=== PATIENT | male | born 1965 | race Caucasian/White ===

== ENCOUNTER → 2018-04-10 | Outpatient (CLI) | payer BC ==
[~2018-04-10] MED LIST: ACET-1600 PO; LACT1CAP35 PO; MULT-717 PO; NAPR1TAB21 PO; OMEG1CAP23 PO; SULF-169 PO
== END ==
LOC: STAR 14:26
PROVIDERS: ATTEND Orthopaedic Surgery
DX: Z02.9 Encounter for administrative examinations, unspecified (principal)

== ENCOUNTER 2018-04-14 14:27 | Day surgery (SDC) | payer BC ==
[~2018-04-14] VITALS: Ht 162.6 cm; Wt 101.0 kg
[~2018-04-14 14:27] MED LIST changes: +BUPIVACAINE/PF 0.25% ONE; +CEFAZOLIN 1,000 MG ONE; +DEXAMETHASONE 4 MG/ML, 1ML ONE; +FENTANYL PF 250 MCG/5ML ONE; +LIDOCAINE-MPF 2% ,5ML ONE; +MIDAZOLAM 1 MG/ML, 2ML ONE; +ONDANSETRON 2MG/ML, 2ML ONE; +PROPOFOL 10 MG/ML, 20ML ONE
[2018-04-14] MEDS ORDERED: EPHEDRINE 50 MG/ML, 1ML IM PRN (15:00)
[2018-04-14] MEDS ORDERED: OXYcodone 5 MG/5 ML ORAL.SOL UDC PO PRN (15:00)
[2018-04-14] MEDS ORDERED: METOCLOPRAMIDE 5 MG/ML, 2ML IV PRN (15:00)
[2018-04-14] MEDS ORDERED: ACETAMINOPHEN 325 MG TABLET PO PRN (15:00)
[2018-04-14] MEDS ORDERED: ONDANSETRON ODT 8 MG PO ONE (15:00)
[2018-04-14] MEDS ORDERED: GABAPENTIN 300 MG CAPSULE PO ONE (15:00)
[2018-04-14] MEDS ORDERED: MIDAZOLAM 1 MG/ML, 2ML IV PRN (15:00)
[2018-04-14] MEDS ORDERED: ALBUTEROL/IPRATROPIUM 2.5MG/0.5MG, 3 ML NPPB PRN (15:00)
[2018-04-14] MEDS ORDERED: PROMETHAZINE 25 MG/ML, 1ML IV PRN (15:00)
[2018-04-14] MEDS ORDERED: FENTANYL PF 100 MCG/2ML IV PRN (15:00)
[2018-04-14] MEDS ORDERED: ACETAMINOPHEN 500 MG TABLET PO ONE (15:00)
[2018-04-14] MEDS ORDERED: MORPHINE SULFATE 4 MG/ML, 1ML IVPush PRN (15:00)
[2018-04-14] MEDS ORDERED: LABETALOL 5MG/ML, 20ML IV PRN (15:00)
[2018-04-14] MEDS ORDERED: MEPERIDINE/PF 25MG/0.5ML IVPush PRN (15:00)
[2018-04-14] MEDS ORDERED: ONDANSETRON ODT 8 MG ONE (15:01)
[2018-04-14] MEDS ORDERED: ACETAMINOPHEN 500 MG TABLET ONE (15:01)
[2018-04-14] MEDS ORDERED: GABAPENTIN 300 MG CAPSULE ONE (15:01)
[2018-04-14] MEDS ORDERED: MEPERIDINE/PF 50 MG/ML ONE (15:50)
[2018-04-14] MEDS ORDERED: OXYcodone 5 MG/5 ML ORAL.SOL UDC ONE (16:21)
[2018-04-14] MEDS ORDERED: HYDROmorphone 2 MG/ML, 1ML ONE (16:22)
[2018-04-14] MEDS: HYDROmorphone 1 MG/ML, 1ML IV PRN ×4 (16:25→17:00)
[2018-04-14] MEDS ORDERED: KETOROLAC 30 MG/1 ML ONE (16:44)
[2018-04-14] MEDS ORDERED: KETOROLAC 30 MG/1 ML IV PRN (17:00)
== END 2018-04-14 18:30 ==
LOC: OR 14:27
PROVIDERS: ATTEND Orthopaedic Surgery
DX: T84.53XA Infection and inflammatory reaction due to internal right knee prosthesis, initial encounter (principal); M25.661 Stiffness of right knee, not elsewhere classified; M00.861 Arthritis due to other bacteria, right knee; G47.33 Obstructive sleep apnea (adult) (pediatric); Z96.651 Presence of right artificial knee joint; Z88.8 Allergy status to other drugs, medicaments and biological substances; Y83.8 Other surgical procedures as the cause of abnormal reaction of the patient, or of later complication, without mention of misadventure at the time of the procedure; Y92.89 Other specified places as the place of occurrence of the external cause
CPT/HCPCS: 27301; 27570; 64447; 87070; 87075; 87205; J0690; J1100; J1170; J1885; J2175; J2250; J2405; J2704; J3010; J3490; 87077